=== PATIENT | male | born 1995 | race Caucasian/White ===

== ENCOUNTER 2017-11-25 17:40 | Emergency (ER) | payer SELFPAY ==
[2017-11-25] MEDS ORDERED: NS 1,000 ML IV ONE (18:34)
[2017-11-25 19:04] LABS: PLATELET COUNT 185 10^3/uL (150-400)
--- NOTE | 2017-11-25 20:05 | EDPHY ---
H & P Stated Complaint: syncopal episode hit head face lac Time Seen by Provider: 11/25/17 18:01 HPI/ROS: Chief complaint: Nearly passed out with facial trauma History of present illness: This is a 22-year-old male, visiting [place] from [place] who presents after nearly passing out earlier this evening and hitting his face, cutting it open. Patient was sitting down because he was feeling lightheaded, he started to pass out and struck his face against a table and cut it open. He notes he did not fully pass out. Bleeding was controlled with application of a dressing. He drink fluid and is now feeling better. He denies headache, neck pain, pain or trauma in other parts of the body. No paresthesias, weakness or paralysis or bowel or bladder dysfunction. His tetanus is up-to-date. Review of systems: A 10 point review of systems was obtained and other than described above was negative - Personal History Current Tetanus/Diphtheria Vaccine: Unsure Current Tetanus Diphtheria and Acellular Pertussis (TDAP): Unsure - Medical/Surgical History Hx Asthma: No Hx Chronic Respiratory Disease: No Hx Diabetes: No Hx Cardiac Disease: No Hx Renal Disease: No Hx Cirrhosis: No Hx Alcoholism: No Hx HIV/AIDS: No Hx Splenectomy or Spleen Trauma: No Other PMH: denies - Social History Smoking Status: Never smoked - Physical Exam Exam: General Appearance: Alert, nontoxic Eyes: PERRLA, EOM intact. Respiratory: Lungs clear to auscultation bilaterally. Cardiac: Regular rate and rhythm. Gastrointestinal: Soft, nondistended, nontender. Neurological: Alert and oriented x4. Cranial nerves 2-12 grossly intact. Strength and sensation intact and symmetrical. Skin: 2 cm laceration to the left cheek that does not extend into deep tissue. No foreign bodies noted. Musculoskeletal: The face as well as the rest of the head is nontender without crepitus or bony deformity. The spine is nontender to palpation along its entire length without crepitus, bony deformity or step-off. He is moving all extremities without difficulty. Ambulating well. Constitutional: Initial Vital Signs Temperature (C) 36.7 C 11/25/17 17:45 Heart Rate 105 H 11/25/17 17:45 Respiratory Rate 16 11/25/17 17:45 Blood Pressure 125/73 H 11/25/17 17:45 O2 Sat (%) 98 11/25/17 17:45 O2 Delivery Mode Room Air Allergies/Adverse Reactions: No Known Allergies Allergy (Unverified 11/25/17 17:44) Home Medications: Medication Instructions Recorded NK [No Known Home Meds] 11/25/17 Medical Decision Making Procedures: Procedure: Laceration repair. Verbal consent was obtained from the patient. The 2 cm laceration on the face was anesthetized in the usual fashion. The wound was irrigated, draped and explored to its base with a gloved finger. There were no deep structures involved. No tendon injury was identified. The wound was repaired with 6 0 Prolene, 1 running stitch. The wound repair was simple. The procedure was performed by myself. ED Course/Re-evaluation: Patient discussed with my secondary supervising physician Dr. Arleth Henson. Patient presents after having a near syncopal episode. It does not appear he had a true syncopal episode. Blood studies and EKG unremarkable. He is IV hydrated and feeling well. His wound has been cleaned, repaired and dressed. I have discussed symptomatic care with him including rest, hydration, proper food intake. I requested he avoid the use of alcohol and drugs including marijuana. He is to follow up with his regular doctor when he returns home to [place]. Strict return precautions are given. The patient voiced understanding and agreement with plan. Differential Diagnosis: Included but not limited to near syncope/syncope from volume depletion, electrolyte abnormalities, out to, substance use, unlikely seizure activity as well as trauma including soft tissue, unlikely bony fracture or intracranial injury. - Data Points Laboratory Results: Laboratory Results 11/25/17 18:50 11/25/17 18:50 11/25/17 11/25/17 18:50 18:50 WBC 9.04 10^3/uL 10^3/uL (3.80-9.50) RBC 5.54 10^6/uL 10^6/uL (4.40-6.38) Hgb 16.4 g/dL g/dL (13.7-17.5) Hct 48.3 % % (40.0-51.0) MCV 87.2 fL fL (81.5-99.8) MCH 29.6 pg pg (27.9-34.1) MCHC 34.0 g/dL g/dL (32.4-36.7) RDW 12.1 % % (11.5-15.2) Plt Count 185 10^3/uL 10^3/uL (150-400) MPV 11.4 fL fL (8.7-11.7) Neut % (Auto) 75.2 % H % (39.3-74.2) Lymph % (Auto) 13.2 % L % (15.0-45.0) Crisp % (Auto) 10.7 % % (4.5-13.0) Eos % (Auto) 0.2 % L % (0.6-7.6) Baso % (Auto) 0.3 % % (0.3-1.7) Nucleat RBC Rel Count 0.0 % % (0.0-0.2) Absolute Neuts (auto) 6.79 10^3/uL H 10^3/uL (1.70-6.50) Absolute Lymphs (auto) 1.19 10^3/uL 10^3/uL (1.00-3.00) Absolute Monos (auto) 0.97 10^3/uL H 10^3/uL (0.30-0.80) Absolute Eos (auto) 0.02 10^3/uL L 10^3/uL (0.03-0.40) Absolute Basos (auto) 0.03 10^3/uL 10^3/uL (0.02-0.10) Absolute Nucleated RBC 0.00 10^3/uL 10^3/uL (0-0.01) Immature Gran % 0.4 % % (0.0-1.1) Immature Gran # 0.04 10^3/uL 10^3/uL (0.00-0.10) Sodium 141 mEq/L mEq/L (135-145) Potassium 4.5 mEq/L mEq/L (3.3-5.0) Chloride 103 mEq/L mEq/L (97-110) Carbon Dioxide 26 mEq/l mEq/l (22-31) Anion Gap 12 mEq/L mEq/L (6-14) BUN 17 mg/dL mg/dL (7-23) Creatinine 1.0 mg/dL mg/dL (0.7-1.3) Estimated GFR > 60 Glucose 132 mg/dL H mg/dL (70-100) Calcium 10.1 mg/dL mg/dL (8.5-10.4) Medications Given: Discontinued Medications Sodium Chloride (Ns) 1,000 mls @ 0 mls/hr IV ONCE ONE; Wide Open PRN Reason: Protocol Stop: 11/25/17 18:35 Last Admin: 11/25/17 18:51 Dose: 1,000 mls Departure - Departure Disposition: Home, Routine, Self-Care Clinical Impression: Near syncope Facial laceration Qualifiers: Encounter type: initial encounter Qualified Code(s): S01.81XA - Laceration without foreign body of other part of head, initial encounter Condition: Good Instructions: Mountain Sickness (ED), Near Syncope (ED), Facial Laceration (ED) , Acute Wounds (ED) Additional Instructions: Follow-up with a primary care doctor next week for recheck You had a single running suture placed that needs to be removed in 7 days Drink plenty of fluids to stay hydrated and get plenty of rest. Avoid alcohol and drugs. If symptoms worsen or new symptoms develop return to the emergency room Referrals: NONE *PRIMARY CARE P,. [Primary Care Provider] - As per Instructions [facility],. [Clinic] - As per Instructions
[2017-11-25 20:20] VITALS: BP 141/67
--- NOTE | 2017-11-25 20:26 | CPEKG ---
Test Reason : OPEN Blood Pressure : / mmHG Vent. Rate : 053 BPM Atrial Rate : 000 BPM P-R Int : 141 ms QRS Dur : 091 ms QT Int : 405 ms P-R-T Axes : 099 051 003 degrees QTc Int : 381 ms Sinus rhythm Minimal ST depression, inferior leads Borderline ST elevation, anterior leads Confirmed by Katlyn Mcghee ([id number]) on 11/25/2017 8:26:26 PM Referred By: Confirmed By:Katlyn Mcghee
== END 2017-11-25 20:19 | disposition home or self-care (01) ==
PROC: 0HQ1XZZ Repair Face Skin, External Approach (ICD-10-PCS; principal; 2017-11-25)
DX: S01.412A Laceration without foreign body of left cheek and temporomandibular area, initial encounter (principal); W19.XXXA Unspecified fall, initial encounter